=== PATIENT | female | born 1995 | race Caucasian/White ===

== ENCOUNTER 2021-05-11 12:57 | Emergency (ER) | payer OTHER, SELFPAY ==
--- NOTE | ~2021-05-11 | CT_ITS ---
EXAMINATION: CT brain wo con INDICATION: Headache COMPARISON: None TECHNIQUE: Standard unenhanced head CT. The dose-length product (DLP) was 529.67 mGy-cm. The mA was a djusted according to patient size. Iterative reconstruction technique was employed. FINDINGS: There is no intracranial hemorrhage, acute infarction, or abnormal mass lesion. The ventric les are normal. There is no abnormal mass effect or midline shift. The phillips-white matter differentiat ion is normal. The basal cisterns are patent. The orbits are normal. The paranasal sinuses, mastoids and calvarium are normal. IMPRESSION: 1. No acute intracranial abnormality. Reviewed, dictated and finalized at location A.
--- NOTE | ~2021-05-11 | XR_ITS ---
EXAMINATION: XR chest 2V DATE: 05/11/2021 13:57 INDICATION: Chest wall pain TECHNIQUE: PA and lateral views of the chest are obtained. COMPARISON: None available FINDINGS: The lungs are free of acute opacities. There is no pleural effusion or pneumothorax. The ca rdiomediastinal silhouette is normal. The visualized bones and soft tissues are unremarkable. IMPRESSION: 1. No acute cardiopulmonary abnormality. Reviewed, dictated and finalized at location A.
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
[2021-05-11 13:05] VITALS: BP 118/80; PULSE 88; RESP 14; TEMP 36.5; O2SAT 99
[2021-05-11] MEDS: ONDANSETRON HCL ODT 4 MG TABLET PO (13:41)
[2021-05-11] MEDS: ACETAMINOPHEN 325 MG TABLET 650 MG PO (13:41)
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
[2021-05-11 15:08] VITALS: BP 131/63; PULSE 63; RESP 16; O2SAT 99
== END 2021-05-11 15:09 | disposition home or self-care (01) ==
PROVIDERS: Emergency Provider Emergency Medicine; PCP Family Medicine
DX: S09.90XA Unspecified injury of head, initial encounter (principal); S19.9XXA Unspecified injury of neck, initial encounter; N64.4 Mastodynia; V49.40XA Driver injured in collision with unspecified motor vehicles in traffic accident, initial encounter
CPT/HCPCS: 70450; 71046; 72125; 99284; A9270

== ENCOUNTER 2022-03-08 13:48 | Emergency (ER) | payer OTHER, SELFPAY ==
--- NOTE | ~2022-03-08 | CT_ITS ---
EXAMINATION: CT brain wo con DATE: 03/08/2022 21:18 INDICATION: headache . TECHNIQUE: Computed tomography (CT) of the head was performed without intravenous contrast. The mA wa s adjusted according to patient size. Iterative reconstruction technique was employed. The dose-lengt h product was 529.67 mGy-cm. COMPARISON: 05/11/2021. FINDINGS: No acute intracranial hemorrhage or extra-axial fluid collection. No hydrocephalus, mass, or herniation. No acute ischemic infarct. Unremarkable dural venous sinus attenuation. No acute osseous abnormality. Retention cyst or polyp in the left sphenoid sinus, the remaining aerated spaces are clear. IMPRESSION: No acute intracranial process. Reviewed, dictated and finalized at location K. NEERING OFFICER
--- NOTE | 2022-03-08 13:53 | ECG_ITS ---
Measurements Intervals [place] Rate: 78 P: 39 [place]: 142 QRS: 72 QRSD: 94 T: 50 QT: 377 QTc: 431 Interpretive Statements SINUS RHYTHM INCOMPLETE RIGHT BUNDLE BRANCH BLOCK BASELINE ARTIFACT- I, II, III, AVR, AVL, AVF, V3 BORDERLINE ECG NO PREVIOUS ECG AVAILABLE FOR COMPARISON Electronically Signed On 03-08-2022 14:02:33 MARKETING TECHNOLOGIST by Hola Loza D.O.
[2022-03-08 14:04] VITALS: BP 136/86; PULSE 81; RESP 16; TEMP 36.4; O2SAT 100
[2022-03-08 14:16] LABS: Basophils Absolute Auto 0.1 K/mm3 (0.0-0.1); Basophils Percent Auto 0.8 % (0.2-1.2); Eosinophils Absolute Auto 0.1 K/mm3 (0-0.3); Eosinophils Percent Auto 1.2 % (0-4.4); Hematocrit 39.1 % (37.0-47.0); Hemoglobin 12.8 g/dL (12.0-15.0); Immature Granulocyte Absolute 0.03 K/mm3 (0.00-0.031); Immature Granulocyte Percent A 0.5 % (0-0.5); Lymphocytes Absolute Auto 1.91 K/mm3 (0.9-3.2); Lymphocytes Percent Auto 32.3 % (18.3-44.2); Mean Corpuscular HGB Conc 32.7 g/dl (32-36); Mean Corpuscular Hemoglobin 29.7 pg (26-34); Mean Corpuscular Volume 90.7 fl (80-100); Mean Platelet Volume 9.1 fl (7.4-10.4); Monocytes Absolute Auto 0.2 K/mm3 (0.1-0.6); Monocytes Percent Auto 4.1 % (2.6-8.5); Neutrophils Absolute Auto 3.6 K/mm3 (1.3-6.7); Neutrophils Percent Auto 61.1 % (45.5-73.1); Platelet Count Result 281 k/mm3 (150-375); Red Blood Count 4.31 M/mm3 (4.2-5.4); Red Cell Distribution Width 12.6 % (11.5-14.5); White Blood Count 5.9 K/mm3 (4.5-10.0)
[2022-03-08 14:30] LABS: Alanine Aminotransferase 23 U/L (6-35); Alkaline Phosphatase 108 U/L (38-126); Anion Gap 7 mmol/L (8-16); Aspartate Amino Transferase 25 U/L (14-36); Bilirubin,Total 0.5 mg/dL (0.2-1.3); Blood Urea Nitrogen 12 mg/dL (7-17); Calcium 8.5 mg/dL (8.4-10.2); Carbon Dioxide 26 mmol/L (22-30); Chloride 106 mmol/L (98-107); Estimated CRCL calculation 166 ml/min; Estimated Glomerular Filt Rate > 60; Glucose 101 mg/dL (65-110); Potassium 3.8 mmol/L (3.4-5.0); Sodium 139 mmol/L (137-145)
[2022-03-08 14:42] LABS: Troponin I < 0.012 ng/mL (0.000-0.034)
[2022-03-08] MEDS: PROCHLORPERAZINE EDISYLATE 10 MG/2 ML VIAL IV PUSH (21:33)
[2022-03-08] MEDS: diphenhydrAMINE HCl INJ 50 MG/ML VIAL IV PUSH (21:33)
[2022-03-08] MEDS: SODIUM CHLORIDE 0.9% IV 1,000 ML 999 ML IV CONT (21:39)
[2022-03-08 21:47] LABS: Magnesium 2.1 mg/dL (1.6-2.3)
[2022-03-08 21:52] LABS: INR 1.1; Prothrombin Time 13.6 Seconds (11.1-14.7)
[2022-03-08 21:53] LABS: Partial Thromboplastin Time 36.5 SECONDS (22.3-36.8)
--- NOTE | 2022-03-08 22:40 | ED.GENADULT ---
HPI - General Adult General Chief complaint: Arrhythmia/Palpitations Stated complaint: palpitations, dizzy, bloody nose Time Seen by Provider: 03/08/22 14:01 History of Present Illness HPI narrative: Patient is a 26-year-old female that presents the emergency department with chief complaint of palpitations nosebleeds and headache. The patient reports that around 1 PM today she noticed that her heart started beating fast and was concerned that she was having palpitations. The patient reports she also had 3 episodes of nosebleed that was able to be controlled. Patient reports is not on any blood thinners denies trauma. Patient also reports that after the nosebleed she developed a headache. The patient states it was throbbing reports that her eyes feels as though they have pressure reports no change in vision denies vertigo or focal neurological deficit Related Data Allergies Allergy/AdvReac Type Severity Reaction Status Date / Time No Known Allergies Allergy Verified 05/11/21 13:26 Review of Systems Review of Systems: A 10 system review of systems was completed on the patient and is negative except for what is stated in the HPI. Nursing and ancillary documentation was reviewed. Exam Narrative: GENERAL: Well-appearing, well-nourished, and in no acute distress. HEAD: Normocephalic, atraumatic. EYES: PERRLA and EOMI. ENT: Nares clear, no rhinorrhea or epistaxis. Mucous membranes moist. NECK: Supple. CHEST: Clear to auscultation. No respiratory distress. HEART: Regular rate and rhythm. No murmur heard. Normal peripheral pulses. ABDOMEN: Soft, nontender, nondistended, normal active bowel sounds. EXTREMITIES: Normal range of motion. No edema. SKIN: Warm, dry, no rash. NEURO: No focal deficits. Alert and oriented x3. PSYCH: Normal mood and affect. Course Vital Signs Vital signs: Vital Signs Temperature 36.4 C 03/08/22 14:04 Pulse Rate 81 03/08/22 14:04 Respiratory Rate 16 03/08/22 14:04 Blood Pressure 136/86 03/08/22 14:04 Pulse Oximetry 100 03/08/22 14:04 Oxygen Delivery Room Air 03/08/22 14:04 Temperature 36.4 C 03/08/22 14:04 Pulse Rate 81 03/08/22 14:04 Respiratory Rate 16 03/08/22 14:04 Blood Pressure 136/86 03/08/22 14:04 Pulse Oximetry 100 03/08/22 14:04 Oxygen Delivery Room Air 03/08/22 14:04 Medical Decision Making MDM Narrative Medical decision making narrative: EKG interpreted by me as sinus rhythm rate of [address] elevation or ST depression. Laboratory studies were obtained which show a troponin of less than point 0.2 electrolytes showed a normal potassium at 3.8 and a magnesium of 2.1. CT head that was interpreted by the radiologist and reviewed by me showed no evidence of acute intracranial pathology. Patient is afebrile she has no nuchal rigidity no focal neurological deficits. Vital Signs Vital Signs: Vital Signs Temperature 36.4 C 03/08/22 14:04 Pulse Rate 81 03/08/22 14:04 Respiratory Rate 16 03/08/22 14:04 Blood Pressure 136/86 03/08/22 14:04 Pulse Oximetry 100 03/08/22 14:04 Oxygen Delivery Room Air 03/08/22 14:04 Temperature 36.4 C 03/08/22 14:04 Pulse Rate 81 03/08/22 14:04 Respiratory Rate 16 03/08/22 14:04 Blood Pressure 136/86 03/08/22 14:04 Pulse Oximetry 100 03/08/22 14:04 Oxygen Delivery Room Air 03/08/22 14:04 Lab Data 03/08/22 14:08 03/08/22 14:08 Labs: Lab Results 03/08/22 03/08/22 03/08/22 Range/Units 14:08 14:08 14:08 WBC 5.9 (4.5-10.0) K/mm3 RBC 4.31 (4.2-5.4) M/mm3 Hgb 12.8 (12.0-15.0) g/dL Hct 39.1 (37.0-47.0) % MCV 90.7 (80-100) fl MCH 29.7 (26-34) pg MCHC 32.7 (32-36) g/dl RDW 12.6 (11.5-14.5) % Plt Count 281 (150-375) k/mm3 MPV 9.1 (7.4-10.4) fl Immature Gran % (Auto) 0.5 (0-0.5) % Neut % (Auto) 61.1 (45.5-73.1) % Lymph % (Auto) 32.3 (18.3-44.2) % [place] % (Auto)
[2022-03-08 23:29] LABS: Appearance Urine Cloudy (Clear); Bilirubin Urine Negative (Negative); Blood Urine Negative (Negative); Color Urine Yellow (Yellow); Glucose Urine UA Negative (Negative); Ketones Urine Negative (Negative); Leukocyte Esterase Ur Negative LEU/UL (Negative); Nitrate Urine Negative (Negative); Protein Urine Negative (Negative); Specific Grav Ur >= 1.030 (1.001-1.035); Urobilinogen Urine 0.2 mg/dL (<2.0); pH Urine 5.5 (5.0-9.0)
[2022-03-08 23:39] LABS: Bacteria Urine Trace /hpf; Mucus Urine Few /lpf; Squamous Epithelial Cell Urine Many /hpf (Few)
[2022-03-08 23:49] LABS: Add Urine Microscopic? NO
[2022-03-09 00:26] VITALS: BP 132/76; PULSE 74; RESP 18; TEMP 36.7; O2SAT 100
[2022-03-09 01:14] LABS: Influenza A QL RT-PCR Negative (Negative); Influenza B QL RT-PCR Negative (Negative); RSV RNA, RT-PCR Negative (Negative); SARS-CoV-2 RNA PCR Negative
== END 2022-03-09 00:33 | disposition home or self-care (01) ==
PROVIDERS: Emergency Medicine; Emergency Provider Emergency Medicine; PCP Family Medicine
DX: R00.2 Palpitations (principal); R51.9 Headache, unspecified; Z20.822 Contact with and (suspected) exposure to COVID-19
CPT/HCPCS: 36415; 70450; 80053; 81003; 81025; 83735; 84484; 85025; 85610; 85730; 87637; 93005; 96361; 96374; 96375; 99284; J0780; J1200; J7030